=== PATIENT | male | born 1960 | race Caucasian/White ===

== ENCOUNTER → 2018-02-12 | Outpatient (CLI) | payer BC ==
[~2018-02-12] MED LIST: ALPR.25 PO; ALPR.5 PO; ASPI81CH PO; CHOL10002 PO; CYAN500 PO; ENOX40I SC; FLUC200 PO; Inderal60 MG PO; LEVOCETIRIZINE D5 MG PO; MONTELUKAST SOD10 MG PO; Multivitamin1 EAC1 PO; OMEP10ER PO; OMEPRAZOLE MAGN20 MG PO; OXYACE5T PO; Omeprazole20 M1 PO; PROP10 PO; XARELTO20 MG PO
== END | disposition home or self-care (01) ==
LOC: PLD 09:31 → LAB SHORT 09:31
DX: D48.5 Neoplasm of uncertain behavior of skin (principal)
CPT/HCPCS: 88305

== ENCOUNTER → 2018-03-07 | Outpatient (CLI) | payer BC | END | disposition home or self-care (01) | LOC: PLD 08:09 → LAB SHORT 08:09 | DX: C44.619 Basal cell carcinoma of skin of left upper limb, including shoulder (principal) | CPT/HCPCS: 88305 ==

== ENCOUNTER 2018-08-15 08:53 | Day surgery (SDC) | payer BC ==
[~2018-08-15] VITALS: Ht 180.3 cm; Wt 88.9 kg
--- NOTE | 2018-08-15 09:37 | NUR ---
08/15/18 0937 Ever Connors CALL LIGHT WITHIN REACH
== END 2018-08-15 10:44 | disposition home or self-care (01) ==
LOC: ORSCSDS 08:53
PROVIDERS: Internal Medicine Gastroenterology
PROC: 0DBH8ZX Excision of Cecum, Via Natural or Artificial Opening Endoscopic, Diagnostic (ICD-10-PCS; principal; 2018-08-15 10:15)
PROC: 0DBP8ZX Excision of Rectum, Via Natural or Artificial Opening Endoscopic, Diagnostic (ICD-10-PCS; principal; 2018-08-15 10:15)
PROC: 0DBL8ZX Excision of Transverse Colon, Via Natural or Artificial Opening Endoscopic, Diagnostic (ICD-10-PCS; principal; 2018-08-15 10:15)
DX: Z12.11 Encounter for screening for malignant neoplasm of colon (principal); D12.0 Benign neoplasm of cecum; D12.3 Benign neoplasm of transverse colon; K62.1 Rectal polyp; K57.30 Diverticulosis of large intestine without perforation or abscess without bleeding; K64.8 Other hemorrhoids; I48.91 Unspecified atrial fibrillation; Z79.01 Long term (current) use of anticoagulants; Z79.899 Other long term (current) drug therapy
CPT/HCPCS: 88305; J7120

== ENCOUNTER → 2021-05-03 | Outpatient (CLI) | payer BC | END | disposition home or self-care (01) | LOC: LAB 11:49 → LAB SHORT 11:49 | DX: C44.619 Basal cell carcinoma of skin of left upper limb, including shoulder (principal); C44.41 Basal cell carcinoma of skin of scalp and neck | CPT/HCPCS: 88305 ==

== ENCOUNTER → 2021-11-09 | Outpatient (CLI) | payer BC | END | disposition home or self-care (01) | LOC: PLD 11:04 → LAB SHORT 11:04 | DX: D48.5 Neoplasm of uncertain behavior of skin (principal) | CPT/HCPCS: 88305 ==

== ENCOUNTER → 2021-12-29 | Outpatient (CLI) | payer BC | END | disposition home or self-care (01) | LOC: PLD 11:01 → LAB SHORT 11:01 | DX: C44.519 Basal cell carcinoma of skin of other part of trunk (principal) | CPT/HCPCS: 88305 ==

== ENCOUNTER → 2022-05-17 | Outpatient (CLI) | payer BC | END | disposition home or self-care (01) | LOC: PLD 14:35 → LAB SHORT 14:35 | DX: C44.519 Basal cell carcinoma of skin of other part of trunk (principal) | CPT/HCPCS: 88305 ==

== ENCOUNTER → 2022-11-15 | Outpatient (CLI) | payer BC | LOC: LAB SHORT 14:37 → PLD 14:37 | DX: D48.5 Neoplasm of uncertain behavior of skin (principal) | CPT/HCPCS: 88305 ==

== ENCOUNTER 2024-06-12 07:04 | Day surgery (SDC) | payer MEDICARE, OTHER ==
[2024-06-12] VITALS (7 sets, daily range): BP systolic 110–150; BP diastolic 62–91
[~2024-06-12] VITALS: Ht 177.8 cm; Wt 88.1 kg
[~2024-06-12 07:04] MED LIST changes: +Aspir 8181 MG PO; +CENTRUM SILVER1 EAC2 PO; +CeFAZolin Sodium 2,000 MG in NS 100 ML IV SCH; -Inderal60 MG PO; +Lactated Ringer's 1,000 ML IV SCH; +Vitamin C100 M1 PO; +Vitamin D1000 UNI1 PO; +XYZAL5 MG PO
[2024-06-12] MEDS ORDERED: Bupivacaine 0.5% HCl 5 MG/ML 30MLVIAL ONE (07:09)
[2024-06-12] MEDS ORDERED: propofoL 20 ML IV ONE (08:13)
[2024-06-12] MEDS ORDERED: Dexamethasone Sod Phos 10 MG/ML 1ML VIAL ONE (08:13)
[2024-06-12] MEDS ORDERED: Lidocaine HCl 2% 20 ML MDV ONE (08:13)
[2024-06-12] MEDS ORDERED: FentaNYL Citrate 50 MCG/ML 2 ML Injection ONE (08:13)
[2024-06-12] MEDS ORDERED: Rocuronium Bromide 10 MG/ML 5ML Injection IV ONE (08:13)
[2024-06-12] MEDS ORDERED: Ondansetron HCl 2 MG / ML 2ML Vial ONE (08:13)
[2024-06-12] MEDS ORDERED: Labetalol HCL 5 MG/ML 4ML Injection (Single Dose) IV PRN (08:45)
[2024-06-12] MEDS ORDERED: Metoclopramide HCl 5MG / ML 2ML Vial IV PRN (08:45)
[2024-06-12] MEDS ORDERED: Ketorolac Tromethamine 30mg Vial ONE (08:45)
[2024-06-12] MEDS ORDERED: FentaNYL Citrate 50 MCG/ML 2 ML Injection IV PRN ×3 (08:45)
[2024-06-12] MEDS ORDERED: HYDROmorphone HCl/Pf 1MG SYR IV PRN (08:45)
[2024-06-12] MEDS ORDERED: Ondansetron HCl 2 MG / ML 2ML Vial IV PRN (08:50)
[2024-06-12] MEDS ORDERED: Neostigmine Methylsulfate 5MG/5ML SYR ONE (09:17)
[2024-06-12] MEDS ORDERED: Glycopyrrolate 0.2 MG/ML 5ML VIAL ONE (09:17)
[2024-06-12] MEDS ORDERED: HYDROcodone 5-APAP 325 TAB PO PRN (09:45)
--- NOTE | 2024-06-12 10:20 | NUR ---
Discharge instructions reviewed with patient. Patient verbalizes understanding. Copy given to patient to take home. Dressings c/d/i. Prescription given to pt's . Patient States Post-Procedure ride home has been arranged. Discharged via wheelchair to private car for ride home.
== END 2024-06-12 10:25 | disposition home or self-care (01) ==
LOC: ORSCMMR 07:04 → ORD 08:30 → ORSCMMR 10:25
PROVIDERS: Surgery
PROC: 0WUF0JZ Supplement Abdominal Wall with Synthetic Substitute, Open Approach (ICD-10-PCS; principal; 2024-06-12 08:30)
DX: K43.2 Incisional hernia without obstruction or gangrene (principal); I48.91 Unspecified atrial fibrillation; F41.9 Anxiety disorder, unspecified; K21.9 Gastro-esophageal reflux disease without esophagitis; G47.33 Obstructive sleep apnea (adult) (pediatric); Z79.82 Long term (current) use of aspirin; Z79.899 Other long term (current) drug therapy
CPT/HCPCS: 93005; 93010; C1781; J0690; J1100; J1885; J2405; J2704; J2710; J3010; J7120

== ENCOUNTER 2025-04-03 05:05 | Emergency (ER) | payer OTHER ==
[~2025-04-03] VITALS: Ht 177.8 cm; Wt 86.2 kg
[~2025-04-03 05:05] MED LIST changes: -CeFAZolin Sodium 2,000 MG in NS 100 ML IV SCH; -Lactated Ringer's 1,000 ML IV SCH
[2025-04-03] MEDS ORDERED: Morphine Sulfate 4 MG/1 ML Injection IV ONE (05:40)
[2025-04-03] MEDS ORDERED: Ondansetron HCl 2 MG / ML 2ML Vial IV ONE (05:40)
[2025-04-03 06:23] LABS: Source, Urine Clean Catch
[2025-04-03 06:28] LABS: BASOPHILS ABSOLUTE AUTO 0.04 K/mm3 (0.00-0.23); BASOPHILS PERCENT AUTO 0 % (0-2); Bilirubin, Urine Neg (Neg); Color, Urine Yellow (P-Yellow); EOSINOPHILS ABSOLUTE AUTO 0.01 K/mm3 (0.00-0.68); EOSINOPHILS PERCENT AUTO 0 % (0-6); Glucose Qualitative, Urine Neg (Neg); Hematocrit 42.4 % (37.0-53.0); Hemoglobin 14.7 g/dL (13.5-17.5); IMMATURE GRAN ABSOLUTE AUTO 0.04 K/mm3 (0.00-0.10); IMMATURE GRAN PERCENT AUTO 0 % (0-1); Ketones, Urine 4+ (Neg); LYMPHOCYTES ABSOLUTE AUTO 1.36 K/mm3 (0.84-5.20); LYMPHOCYTES PERCENT AUTO 12 % (21-46); Leukocyte Esterase, Urine Neg (Neg); MONOCYTES ABSOLUTE AUTO 1.09 K/mm3 (0.16-1.47); MONOCYTES PERCENT AUTO 9 % (4-13); Mean Corpuscular HGB Conc 34.7 g/dL (31.5-36.5); Mean Corpuscular Volume 88 fL (80-100); NEUTROPHILS ABSOLUTE AUTO 9.05 K/mm3 (1.96-9.15); NEUTROPHILS PERCENT AUTO 78 % (41-73); NRBC ABSOLUTE 0.00 K/mm3 (0.00-0.02); NRBC Auto 0.0 /100 WBC (0.0-0.2); Platelet Count 225 K/mm3 (150-400); Protein, Urine 2+ (Neg); RDW Coefficient Variation 11.8 % (11.7-14.2); RDW Standard Deviation 38.0 fL (35.1-46.3); Specific Gravity, Urine 1.020 (1.003-1.022); Urobilinogen, Urine NORM (Normal)
[2025-04-03 06:52] LABS: Red Blood Cells, Urine 0-2 /hpf (0-2); White Blood Cells, Urine 0-2 /hpf (0-5)
[2025-04-03] MEDS ORDERED: Ketorolac Tromethamine 30mg Vial IV ONE (06:55)
[2025-04-03 07:02] LABS: Alanine Aminotransfer (ALT/SGP 30.0 U/L (12-78); Albumin, Blood 3.5 g/dL (3.4-5.0); Albumin/Globulin Ratio 0.8 (0.8-1.8); Anion Gap 8.0 mmol/L (3-11); Aspartate Aminotrans (AST/SGOT 35.0 U/L (12-37); Bilirubin, Total 1.2 mg/dL (0.1-1.0); Blood Urea Nitrogen 15.0 mg/dL (8-24); CO2, Blood 25.0 mmol/L (21-32); Calcium, Blood 9.2 mg/dL (8.5-10.1); Chloride, Blood 101.0 mmol/L (98-108); Creatinine, Blood 0.72 mg/dL (0.60-1.20); Globulin, Blood 4.3 g/dL (2.2-4.0); Glucose, Blood 137.0 mg/dL (70-99); Magnesium, Blood 2.5 mg/dL (1.6-2.4); Potassium, Blood 3.9 mmol/L (3.5-5.5); Sodium, Blood 130.0 mmol/L (136-145); Total Protein, Blood 7.8 g/dL (6.4-8.2)
[2025-04-03 07:31] LABS: Influenza A, PCR NEGATIVE (NEGATIVE); Influenza B, PCR NEGATIVE (NEGATIVE); Resp Syncytial Virus, PCR NEGATIVE (NEGATIVE); SARS-Cov-2 (COVID-19) PCR, MMC NEGATIVE (NEGATIVE)
[2025-04-03] MEDS ORDERED: XARELTO1 EAC1 PO (08:44)
[2025-04-03 09:04] VITALS: BP 153/83
== END 2025-04-03 09:04 | disposition home or self-care (01) ==
LOC: ER 05:05
PROVIDERS: Student in an Organized Health Care Education/Training Program
DX: N28.0 Ischemia and infarction of kidney (principal); I48.91 Unspecified atrial fibrillation; Z79.899 Other long term (current) drug therapy; Z79.01 Long term (current) use of anticoagulants; Z79.82 Long term (current) use of aspirin
CPT/HCPCS: 74177; 80053; 81001; 83690; 83735; 85025; 87637; 96374-59; 96375; 99284-25; J2270; J2405; J7120; Q9967